=== PATIENT | male | born 1960 | race Asian ===

== ENCOUNTER 2016-08-27 00:09 | Emergency (ER) | payer BC, OTHER ==
--- NOTE | 2016-08-27 00:12 | PDOC ---
History of Present Illness - General Stated Complaint: FEVER Time Seen by Provider: 08/27/16 00:11
--- NOTE | 2016-08-27 00:15 | PDOC ---
History of Present Illness - General Stated Complaint: FEVER Time Seen by Provider: 08/27/16 00:11 History Source: Patient, Spouse - History of Present Illness Timing/Duration: other (~12h) Associated Symptoms: reports: cough, fever/chills Past History - Travel Traveled outside of the country in the last 30 days: No Close contact w/someone who was outside of country & ill: No - Past Medical History Allergies/Adverse Reactions: Allergies Allergy/AdvReac Type Severity Reaction Status Date / Time No Known Allergies Allergy Verified 08/27/16 00:28 Home Medications: Ambulatory Orders Aspirin [ASA -] 81 mg PO DAILY 08/27/16 Clopidogrel Bisulfate [Plavix -] 75 mg PO DAILY 08/27/16 Glipizide Xl [Glucotrol Xl -] 5 mg PO DAILY 08/27/16 Insulin Glargine,Hum.rec.anlog [Lantus (nf)] 40 units SQ DAILY 08/27/16 Losartan Potassium [Cozaar] 25 mg PO DAILY 08/27/16 Metformin HCl [Glucophage] 1,000 mg PO BID 08/27/16 Metoprolol Succinate [Toprol Xl] 50 mg PO DAILY 08/27/16 Penicillin V Potassium [Pen Vee K -] 500 mg PO TID #21 tablet 08/27/16 Simvastatin [Zocor -] 20 mg PO HS 08/27/16 Review of Systems - Review of Systems Able to Perform ROS?: Yes Comments:: 08/27/16 00:48 CONSTITUTIONAL: +fever, chills, Absent: diaphoresis, generalized weakness, malaise, loss of appetite HEENT: Absent: rhinorrhea, nasal congestion, throat pain, throat swelling, difficulty swallowing, mouth swelling, ear pain, eye pain, visual Changes CARDIOVASCULAR: Absent: chest pain, loss of consciousness, palpitations, irregular heart rate, peripheral edema RESPIRATORY: +cough Absent: shortness of breath, dyspnea with exertion, orthopnea, wheezing, stridor , hemoptysis GASTROINTESTINAL: Absent: abdominal pain, abdominal distension, nausea, vomiting, diarrhea, constipation, melena, hematochezia GENITOURINARY: Absent: dysuria, frequency, urgency, hesitancy, hematuria, flank pain, genital pain MUSCULOSKELETAL: Absent: myalgia, arthralgia, joint swelling SKIN: Absent: rash, itching, pallor HEMATOLOGIC/IMMUNOLOGIC: Absent: easy bleeding, easy bruising, lymphadenopathy, frequent infections ENDOCRINE: Absent: unexplained weight gain, unexplained weight loss, heat intolerance, cold intolerance NEUROLOGIC: Absent: headache, focal weakness or paresthesias, dizziness, unsteady gait, seizure, mental status changes, bladder or bowel incontinence PSYCHIATRIC: Absent: anxiety, depression, suicidal or homicidal ideation, hallucinations. Is the patient limited Chinese proficient: No *Physical Exam - Physical Exam Comments: 08/27/16 00:48 GENERAL: Well developed, well nourished. Awake and alert. No acute distress. HEENT: Normocephalic, atraumatic. PERRLA, EOMI. No conjunctival pallor. Sclera are non- icteric. Moist mucous membranes. Oropharynx is clear. NECK: Supple. Full ROM. No JVD. Carotid pulses 2+ and symmetric, without bruits. No thyromegaly. No lymphadenopathy. CARDIOVASCULAR: Regular rate and rhythm. No murmurs, rubs, or gallops. Distal pulses are 2+ and symmetric. PULMONARY: No evidence of respiratory distress. Lungs clear to auscultation bilaterally. No wheezing, rales or rhonchi. ABDOMINAL: Soft. Non-tender. Non-distended. No rebound or guarding. No organomegaly. Normoactive bowel sounds. MUSCULOSKELETAL Normal range of motion at all joints. No bony deformities or tenderness. No CVA tenderness. EXTREMITIES: No cyanosis. No clubbing. No edema. No calf tenderness. SKIN: Warm and dry. Normal capillary refill. No rashes. No jaundice. NEUROLOGICAL: Alert, awake, appropriate. Cranial nerves 2-12 intact. No deficits to light touch and temperature in face, upper extremities and lower extremities. No motor deficits in the in face, upper extremities and lower extremities. Normoreflexic in the upper and lower extremities. Normal speech. Toes are down- going bilaterally. Gait is normal without ataxia. PSYCHIATRIC: Cooperative. Good eye contact. Appropriate mood and affect. *DC/Admit/Observation/Transfer Diagnosis at time of Disposition: Strep pharyngitis - Prescriptions Prescriptions: Penicillin V Potassium [Pen Vee K -] 500 mg PO TID #21 tablet - Referrals Referrals: Latosha Mora MD [Primary Care Provider] - - Patient Instructions Printed Discharge Instructions: DI for Strep Throat Progress Note - Progress Note Progress Note: 55-year-old male presents to the emergency department complaining of a nonproductive cough with a fever/malaise x~ 12 hours. Patient denies any headache, dizziness, nausea/vomiting/diarrhea, constipation, neck pain, chest pain, shortness of breath, abdominal pains, urinary symptoms: Frequency/urgency/ hesitancy, hematuria or flank pain. Patient states he took 1 g of Tylenol at approximately 2000 hrs. this evening with minimal relief. Unk sick contacts
[2016-08-27] MEDS ORDERED: IBUPROFEN 400 MG TABLET (FP) PO ONE (00:22)
[2016-08-27] MEDS ORDERED: SODIUM CHLORIDE 1,000 ML IV STA (00:22)
[2016-08-27] MEDS ORDERED: IBUPROFEN 800 MG/8 ML IJ IVPB ONE (00:24)
[2016-08-27 00:35] VITALS: BMI 30.7
[2016-08-27] MEDS ORDERED: ACETAMINOPHEN 500 MG TABLET (FP) PO ONE (01:06)
[2016-08-27] MEDS ORDERED: ACETAMINOPHEN 325 MG TABLET (FP) ONE (01:07)
--- NOTE | 2016-08-27 01:14 | PDOC ---
*Physical Exam - Vital Signs Last Vital Signs Temp Pulse Resp BP Pulse Ox 102.7 F H 119 H 20 139/69 96 08/27/16 01:03 08/27/16 00:28 08/27/16 00:28 08/27/16 00:28 08/27/16 00:28 ED Treatment Course - ADDITIONAL ORDERS Additional order review: 08/27/16 00:12 Influenza Types A,B Antigen (FERNANDO) - Final Nasopharyngeal Swab - Final - Medications Given in the ED: ED Medications Discontinued Medications Generic Name Dose Route Start Last Admin Trade Name Freq PRN Reason Stop Dose Admin Acetaminophen 975 mg 08/27/16 01:06 08/27/16 01:08 Tylenol - PO 08/27/16 01:07 975 mg ONCE ONE Administration Ibuprofen 800 mg 08/27/16 00:22 08/27/16 00:32 Motrin - PO 08/27/16 00:23 800 mg ONCE ONE Administration Medical Decision Making - Medical Decision Making 08/27/16 01:13 Patient seen and evaluated with the nurse practitioner. I agree with the overall evaluation, assessment, and management with the following summary of visit: 55-year-old male presents with fever and tachycardia, diagnosed with strep pharyngitis. Antipyretics, IV fluids, start antibiotics. Reassess and dispo accordingly *DC/Admit/Observation/Transfer Diagnosis at time of Disposition: Acute streptococcal pharyngitis
[2016-08-27] MEDS ORDERED: PENICILLIN V POTASSIUM 500 MG TABLET PO ONE (01:24)
[2016-08-27] MEDS ORDERED: DEXAMETHASONE LIQUID 0.5 MG/5 ML 240 ML BULK BOTTLE PO ONE (01:27)
[2016-08-27] MEDS ORDERED: DEXAMETHASONE SOD PHOSPHATE 10 MG/1 ML VIAL ONE (01:30)
[2016-08-27 01:44] VITALS: BP 103/48; PULSE 100; TEMP 102.2
== END 2016-08-27 01:44 | disposition home or self-care (01) ==
LOC: JER 00:09
PROC: 3E0337Z Introduction of Electrolytic and Water Balance Substance into Peripheral Vein, Percutaneous Approach (ICD-10-PCS; principal; 2016-08-27)
DX: J02.0 Streptococcal pharyngitis (principal)
CPT/HCPCS: 71010-TC; 87070; 87430; 87804; 99282-25